=== PATIENT | male | born 1950 | race Caucasian/White ===

== ENCOUNTER 2017-08-14 10:04 | Emergency (ER) | payer MEDICARE ==
[2017-08-14 10:11] VITALS: BMI 30.5
[2017-08-14 10:15] VITALS: RESP 18
[2017-08-14] MEDS ORDERED: Sodium Chloride 0.9% 1,000 ML IV ONE (10:43)
[2017-08-14] MEDS ORDERED: Sodium Chloride 0.9% 1,000 ML ONE (10:52)
--- NOTE | 2017-08-14 10:54 | C.PDOC ---
History Of Present Illness 67 year old male, with PMHx of diabetes, HTN, presents to ED for evaluation of left sided back pain for two weeks. Notes that pain is worse at night when he lays on his left side or changes position. Notes he saw his [employer]ic 10 days ago, blood work was drawn but he does not know the results yet. Also notes Dr Cruz ordered MRI which pt has not completed yet. Denies dysuria, hematuria , frequency, abdominal pain, n/v/d, or fever. Denies history of kidney stones in the past. Denies taking any pain meds. No change in sensation, urinary or bowel incontinence. Time Seen by Provider: 08/14/17 10:28 Chief Complaint (Nursing): Back Pain History Per: Patient History/Exam Limitations: no limitations Onset/Duration Of Symptoms: Days Current Symptoms Are (Timing): Still Present Quality Of Discomfort: "Pain" Previous Symptoms: Back Pain. denies: Prior Injury Associated Symptoms: None. denies: Incontinence, New Weakness, New Numbness Recent travel outside of the [place]: No Additional History Per: Patient Past Medical History Reviewed: Historical Data, Nursing Documentation, Vital Signs Vital Signs: Last Vital Signs Temp 98 F 08/14/17 13:45 Pulse 56 L 08/14/17 13:45 Resp 18 08/14/17 13:45 BP 151/77 H 08/14/17 13:45 Pulse Ox 99 08/14/17 13:45 - Medical History PMH: Diabetes, HTN Family History: States: No Known Family Hx - Social History Hx Tobacco Use: No Hx Alcohol Use: No Hx Substance Use: No - Immunization History Hx Tetanus Toxoid Vaccination: No Hx Influenza Vaccination: Yes Hx Pneumococcal Vaccination: No Review Of Systems Except As Marked, All Systems Reviewed And Found Negative. Constitutional: Negative for: Fever, Chills Gastrointestinal: Negative for: Nausea, Vomiting, Abdominal Pain, Diarrhea, Constipation Genitourinary: Negative for: Dysuria, Frequency, Hematuria, Penile Discharge Musculoskeletal: Positive for: Back Pain (left flank) Neurological: Negative for: Weakness, Numbness Physical Exam - Physical Exam Appears: Non-toxic, No Acute Distress Skin: Normal Color, Warm, Dry Head: Atraumatic, Normacephalic Eye(s): bilateral: Normal Inspection, EOMI Nose: Normal Oral Mucosa: Moist Neck: Normal ROM, Supple Chest: Symmetrical Cardiovascular: Rhythm Regular Respiratory: Normal Breath Sounds, No Rales, No Rhonchi, No Wheezing Gastrointestinal/Abdominal: Soft, No Tenderness Back: No CVA Tenderness, No Vertebral Tenderness, Paraspinal Tenderness (left paralumbar), Other (non-tender, non-erythematous, non-flctuant, mobile mass to left flank region) Extremity: Normal ROM, No Pedal Edema Neurological/Psych: Oriented x3, Normal Speech, Normal Motor, Normal Sensation ED Course And Treatment - Laboratory Results Result Diagrams: 08/14/17 11:13 08/14/17 11:13 O2 Sat by Pulse Oximetry: 100 (RA) Pulse Ox Interpretation: Normal - CT Scan/US Abd pelvis Other Rad Studies (CT/US): Read By Radiologist, Radiology Report Reviewed CT/US Interpretation: PROCEDURE: CT Abdomen and Pelvis without Oral or IV contrast. HISTORY: pain. COMPARISON: None available. TECHNIQUE: Contiguous axial images of the abdomen and pelvis. No oral or IV contrast administered. Coronal and Sagittal reformats generated and reviewed. Radiation dose: Total exam DLP = 997.23 mGy-cm. This CT exam was performed using one or more of the following dose reduction techniques: Automated exposure control, adjustment of the mA and/or kV according to patient size, and/or use of iterative reconstruction technique. FINDINGS: There is limited evaluation of the solid organs without the administration of IV contrast. LOWER THORAX: No visible consolidation, pleural effusion, or pneumothorax. Aortic valve calcification. LIVER: Unremarkable. GALLBLADDER AND BILE DUCTS: Unremarkable. PANCREAS: Unremarkable. SPLEEN: Unremarkable. ADRENALS: Unremarkable. KIDNEYS AND URETERS: No hydronephrosis or obstructing renal calculus. Numerous bilateral low-density lesions throughout both kidneys, likely cysts. Largest lesion resides within the left upper pole kidney measuring approximately 7 cm more complicated appearing cystic lesion with peripheral calcification resides within the lateral left mid pole measuring approximately 2.9 cm. BLADDER: The urinary bladder appears unremarkable. REPRODUCTIVE: The prostate gland measures approximately 4.5 x 5.1 cm and contains calcifications. APPENDIX: The appendix appears within normal limits of caliber. No secondary signs of acute appendicitis. BOWEL: The stomach is nondistended. Lack of oral contrast limits evaluation for bowel pathology. The bowel loops appear within normal limits of caliber without evidence of intestinal obstruction. Diverticulosis most extensive at the distal left/ rectosigmoid colon. PERITONEUM: No significant free fluid. No definite free air. LYMPH NODES: No bulky lymphadenopathy identified. VASCULATURE: Atherosclerotic calcifications. No aortic aneurysm. BONES: Multilevel degenerative changes of the spine. OTHER FINDINGS: 1.6 cm fat containing umbilical hernia. IMPRESSION: Diverticulosis most extensive at the distal left /rectosigmoid colon. No CT evidence of acute diverticulitis. Numerous bilateral low-density lesions throughout both kidneys, likely cysts. Largest lesion resides within the left upper pole kidney measuring approximately 7 cm more complicated appearing cystic lesion with peripheral calcification resides within the lateral left mid pole measuring approximately 2.9 cm. Follow-up ultrasound may be considered for further evaluation if indicated. 1.6 cm fat containing umbilical hernia. Enlarged prostate gland. Recommend correlation with PSA. Additional incidental findings as above. Progress Note: Blood work, UA ordered and reviewed. Pt was given Toradol and IV fluids. On re-eval, pt reports feeling better, with improvement of pain. Patient is resting comfortably, no fever, no bony tenderness, no numbness, no weakness, or abdominal pain. Patient is ambulatory in the emergency department with no signs of discomfort. Patient was advised to follow up with their physician in 1-2 days. I discussed with Ct results with pt: pt notes he has a h /o of kidney cyst for 15+ years and recently had US for it. Pt also notes he has a h/o enlarged prostate, though his PSA went from 8 to 2 therefore has not follow up since. PT notes he has no known h/o diverticulosis or diverticulitis. Last colonoscopy "many years ago" and he was instructed by Dr Silverio to get colonscopy TORRES. Pt was given all the labs and CT results and instructed strict follow up with speciailist/PMD . Disposition - Disposition Disposition: HOME/ ROUTINE Disposition Time: 13:03 Condition: STABLE Additional Instructions: Follow up with your PMD, case finisher, GI specialist , and neurologist as soon as possible. Show them the results for further evaluation. Return to ER if symptoms persist or worsen. Instructions: Diverticulosis Diet (ED), Back Pain (ED) Forms: [facility] ([place]) - Clinical Impression Clinical Impression: Renal cyst, Back pain - PA / PRESS OFFICER / Resident Statement MD/DO has reviewed & agrees with the documentation as recorded. - Scribe Statement The provider has reviewed the documentation as recorded by the Andre Hogan All medical record entries made by the Scribe were at my direction and personally dictated by me. I have reviewed the chart and agree that the record accurately reflects my personal performance of the history, physical exam, medical decision making, and the department course for this patient. I have also personally directed, reviewed, and agree with the discharge instructions and disposition.
[2017-08-14 11:18] LABS: BASO % 0.6 % (0.0-2.0); EOS # 0.9 K/uL (0.0-0.7); EOS % 11.1 % (0.0-4.0); HEMATOCRIT 39.1 % (35.0-51.0); LYMPH # 1.6 K/uL (1.0-4.3); LYMPH % 20.2 % (20.0-40.0); MEAN CELL VOLUME 80.9 fL (80.0-94.0); MEAN CORPUSCULAR HEMOGLOBIN 27.4 pg (27.0-31.0); MEAN CORPUSCULAR HGB CONC 33.9 g/dL (33.0-37.0); MEAN PLATELET VOLUME 8.7 fL (7.2-11.7); MONO # 0.5 K/uL (0.0-0.8); MONO % 6.4 % (0.0-10.0); NRBC % 0.1 % (0.0-2.0); RED CELL DISTRIBUTION WIDTH 13.7 % (11.5-14.5); WHITE BLOOD COUNT 7.9 K/uL (4.8-10.8)
[2017-08-14 11:20] LABS: URINE BACTERIA RARE (<OCC); URINE BILIRUBIN NEGATIVE (NEGATIVE); URINE BLOOD NEGATIVE (NEGATIVE); URINE COLOR Straw (YELLOW); URINE GLUCOSE (UA) NORMAL (Normal); URINE KETONE NEGATIVE (NEGATIVE); URINE LEUKOCYTE ESTERASE NEG Leu/uL (Negative); URINE PROTEIN NEGATIVE (NEGATIVE); URINE UROBILINOGEN NORMAL mg/dL (0.2-1.0); WBC URINE < 1 /hpf (0-5)
[2017-08-14 11:40] LABS: ALB/GLOB RATIO 1.3 (1.0-2.1); ALKALINE PHOSPHATASE 33 U/L (38-126); ALT/SGPT 25 U/L (21-72); AST/SGOT 27 U/L (17-59); BILIRUBIN,TOTAL 0.6 mg/dL (0.2-1.3); BLOOD UREA NITROGEN 17 mg/dL (9-20); CALCIUM 8.1 mg/dl (8.6-10.4); CARBON DIOXIDE 20 mmol/L (22-30); CHLORIDE 103 mmol/L (98-107); GFR AFRICAN-AMERICAN > 60; GLUCOSE,RANDOM 192 mg/dL (75-110); POTASSIUM 4.4 mmol/L (3.6-5.2); SODIUM 131 mmol/L (132-148); TOTAL PROTEIN 6.9 g/dL (6.3-8.3)
--- NOTE | 2017-08-14 12:06 | CT ---
PROCEDURE: CT Abdomen and Pelvis without Oral or IV contrast. HISTORY: pain COMPARISON: None available TECHNIQUE: Contiguous axial images of the abdomen and pelvis. No oral or IV contrast administered. Coronal and Sagittal reformats generated and reviewed. Radiation dose: Total exam DLP = 997.23 mGy-cm. This CT exam was performed using one or more of the following dose reduction techniques: Automated exposure control, adjustment of the mA and/or kV according to patient size, and/or use of iterative reconstruction technique. FINDINGS: There is limited evaluation of the solid organs without the administration of IV contrast. LOWER THORAX: No visible consolidation, pleural effusion, or pneumothorax. Aortic valve calcification. LIVER: Unremarkable. GALLBLADDER AND BILE DUCTS: Unremarkable. PANCREAS: Unremarkable. SPLEEN: Unremarkable. ADRENALS: Unremarkable. KIDNEYS AND URETERS: No hydronephrosis or obstructing renal calculus. Numerous bilateral low-density lesions throughout both kidneys, likely cysts. Largest lesion resides within the left upper pole kidney measuring approximately 7 cm more complicated appearing cystic lesion with peripheral calcification resides within the lateral left mid pole measuring approximately 2.9 cm. BLADDER: The urinary bladder appears unremarkable. REPRODUCTIVE: The prostate gland measures approximately 4.5 x 5.1 cm and contains calcifications. APPENDIX: The appendix appears within normal limits of caliber. No secondary signs of acute appendicitis. BOWEL: The stomach is nondistended. Lack of oral contrast limits evaluation for bowel pathology. The bowel loops appear within normal limits of caliber without evidence of intestinal obstruction. Diverticulosis most extensive at the distal left/rectosigmoid colon. PERITONEUM: No significant free fluid. No definite free air. LYMPH NODES: No bulky lymphadenopathy identified. VASCULATURE: Atherosclerotic calcifications. No aortic aneurysm. BONES: Multilevel degenerative changes of the spine. OTHER FINDINGS: 1.6 cm fat containing umbilical hernia. IMPRESSION: Diverticulosis most extensive at the distal left/rectosigmoid colon. No CT evidence of acute diverticulitis. Numerous bilateral low-density lesions throughout both kidneys, likely cysts. Largest lesion resides within the left upper pole kidney measuring approximately 7 cm more complicated appearing cystic lesion with peripheral calcification resides within the lateral left mid pole measuring approximately 2.9 cm. Follow-up ultrasound may be considered for further evaluation if indicated. 1.6 cm fat containing umbilical hernia. Enlarged prostate gland. Recommend correlation with PSA. Additional incidental findings as above.
[2017-08-14 13:46] VITALS: BP 151/77; PULSE 56; TEMP 98
[2017-08-14 13:52] VITALS: O2SAT 100
== END 2017-08-14 13:46 | disposition home or self-care (01) ==
LOC: C.ER 10:04
DX: N28.1 Cyst of kidney, acquired (principal); M54.9 Dorsalgia, unspecified; E11.9 Type 2 diabetes mellitus without complications; I10 Essential (primary) hypertension
CPT/HCPCS: 74176; 80053; 81001; 85025; 96361; 96374; 99284; J1885; J7040

== ENCOUNTER 2018-06-14 08:16 | Day surgery (SDC) | payer MEDICARE ==
[2018-06-12 11:47] VITALS: BMI 31.3
[2018-06-14] MEDS ORDERED: Lidocaine 4% (Laryng-O-Jet) Kit MM ONE (09:51)
[2018-06-14] MEDS ORDERED: Propofol 10 mg/ml Inj (20 ML) ONE (10:04)
--- NOTE | 2018-06-14 20:24 | CARD ---
APPROVED REPORT Date of service: 06/14/2018 EXAM: Transesophageal echocardiogram with color flow Doppler. INDICATION ICD: I35.0 Aortic Valve Disease 2D DIMENSIONS LVOT Diameter2.1 (1.8-2.4cm) Aortic Valve AoV Peak Inilfxwv710.6cm/sAoV VTI90.9cmAO Peak GR.56mmHg LVOT Peak Tjogwtop588.6cm/sLVOT VTI28.80cmAO Mean GR.32mmHg RAMON (VMAX)1.01vg7DMA (VTI)1.13cm2 Mitral Valve E/A ratio0.0 TDI E/Lateral E'0.0E/Medial E'0.0 Reason For Test : To evaluate Aortic valve PROCEDURE After obtaining informed consent, patient underwent transesophageal echo in the [employer]. Type of Sedation : Conscious Sedation Sedation was provided by anesthesiologist. Sedation was achieved with intravenously. The YUE was performed complications. Throughout the procedure, the blood pressure, pulse oximetry, cardiac rhythm, and rate were monitored. The patient tolerated the procedure without adverse effects. Recovery from conscious sedation was uneventful and vital signs were stable. LEFT VENTRICLE The left ventricle is normal size. There is moderate concentric left ventricular hypertrophy. Left ventricle systolic function is normal. The Ejection Fraction is >70%. There is normal LV segmental wall motion. Tissue Doppler imaging reveals abnormal left ventricular diastolic dysfunction. No left ventricle thrombus noted on this study. There is no ventricular septal defect visualized. There is no left ventricular aneurysm. RIGHT VENTRICLE The right ventricle is normal size. The right ventricular systolic function is normal. ATRIA The left atrium is mildly dilated. The right atrium size is normal. The interatrial septum is intact with no evidence for an atrial septal defect. AORTIC VALVE The aortic valve is moderately calcified. The aortic valve is probably bicuspid. Right and Left Coronary cusps are fused There is mild to moderate aortic regurgitation. There is severe valvular aortic stenosis. Calculated aortic valve area is 0.9 cm2 with maximum pressure gradient of 61 mmHg and mean pressure gradient of 33 mmHg. There is no aortic valvular vegetation. MITRAL VALVE The mitral valve is normal in structure. There is no evidence of mitral valve prolapse. There is no mitral valve stenosis. Mitral regurgitation is mild. TRICUSPID VALVE The tricuspid valve is normal in structure. There is mild tricuspid regurgitation. There is no tricuspid valve prolapse or vegetation. There is no tricuspid valve stenosis. PULMONIC VALVE The pulmonary valve is normal in structure. GREAT VESSELS The aortic sinuses are normal There is mild to moderate aortic root dilatation (4.2 cm largest diameter) <Conclusion> Left ventricle systolic function is normal. The Ejection Fraction is >70%. The right ventricle is normal size. The left atrium is mildly dilated. The right atrium size is normal. Mitral regurgitation is mild. There is mild tricuspid regurgitation. There is mild to moderate aortic root dilatation (4.2 cm largest diameter) The aortic valve is moderately calcified. The aortic valve is probably bicuspid. Right and Left Coronary cusps are fused There is mild to moderate aortic regurgitation. There is severe valvular aortic stenosis. Calculated aortic valve area is 0.9 cm2 with maximum pressure gradient of 61 mmHg and mean pressure gradient of 33 mmHg.
== END 2018-06-14 11:40 | disposition home or self-care (01) ==
LOC: C.CATHLAB 08:16
PROVIDERS: ATTEND Internal Medicine Cardiovascular Disease
DX: I35.0 Nonrheumatic aortic (valve) stenosis (principal); I34.0 Nonrheumatic mitral (valve) insufficiency; I07.1 Rheumatic tricuspid insufficiency
CPT/HCPCS: 93312; J2704

== ENCOUNTER 2018-07-05 07:46 | Day surgery (SDC) | payer MEDICARE ==
[2018-06-12 11:47] VITALS: BMI 31.3
[2018-07-05] MEDS ORDERED: Midazolam 2 MG/2 ML VIAL ONE (11:35)
[2018-07-05] MEDS ORDERED: Iodixanol 320 MG/ML 100 ML BOTTLE IV ONE ×3 (11:36→11:52)
[2018-07-05] MEDS ORDERED: ceFAZolin 1 gm FROZEN Premix 1 GM/50 ML ML IVPB ONE (12:04)
[2018-07-05 14:20] LABS: ARTERIAL BLOOD GAS HCO3 24.1 mmol/L (21-28); ARTERIAL BLOOD GAS PCO2 38 mm/Hg (35-45); ARTERIAL BLOOD GAS PO2 100 mm/Hg (80-100)
[2018-07-05 14:21] LABS: ARTERIAL BLOOD GAS O2 SAT 99.2 % (95-98); ARTERIAL BLOOD GAS TCO2 24.7 mmol/L (22-28)
[2018-07-05 14:22] LABS: VENOUS BLOOD GAS PCO2 47 mmHg (40-60); VENOUS BLOOD PH 7.35 (7.32-7.43)
[2018-07-05 14:23] LABS: VENOUS BLOOD GAS BASE EXCESS -0.2 mmol/L (0.0-2.0); VENOUS BLOOD GAS PO2 43 mm/Hg (30-55)
--- NOTE | 2018-07-08 01:50 | CARDCATH ---
PROCEDURE DATE: 07/05/2018 PROCEDURES: 1. Coronary angiogram. 2. Aortic root angiogram. 3. Right heart catheterization. CLINICAL INDICATIONS: 1. Exertional dyspnea. 2. Severe symptomatic aortic stenosis. 3. Hypertension. 4. Hyperlipidemia. REFERRING PHYSICIAN: Stella Ritter MD PERFORMING PHYSICIAN: Osmar Gerber MD DESCRIPTION OF PROCEDURE: After informed consent, the patient was prepped and draped in the usual sterile fashion. A 2% lidocaine was given in the right wrist and right antecubital area. A 6-Djiboutian sheath was introduced into right radial artery. A 7-[place]ib[place]ian sheath introduced into right antecubital vein. Through the 7-Djiboutian antecubital vein, right heart [place]-Fatoumata catheter was inserted into pulmonary artery. Right heart catheterization was performed by taking the measurements in the pulmonary artery, right ventricle, right atrium. Saturations are obtained. Both arterial and venous access were obtained. Cardiac output was calculated using Sven method. A 6-[place]ib[place]ian JR4 diagnostic catheter was engaged into right coronary artery. Contrast injected, and right coronary angiogram was done. Then, the catheter was exchanged to 6-D[place]ib[place]ian Edil catheter. The catheter was engaged into left main coronary. Contrast injected, and left coronary angiogram was done. The patient tolerated the procedure well. Postprocedure, Terumo radial band was applied to right wrist with excellent hemostasis. A 7-D[place]iboutian sheath from the antecubital fossa was removed, and pressure was applied manually. Radiological supervision and radiological interpretation of the coronary imaging was done. FINDINGS: 1. Left main coronary artery is patent. 2. Mid LAD has a 40% nonobstructive stenosis. Distal LAD and diagonal branches are patent. 3. Left circumflex and obtuse marginal branches are patent. 4. Right coronary artery is dominant and patent. 5. The patient has a moderate pulmonary hypertension. 6. Cardiac output by Sven method is 6 L per minute. Cardiac index is 3 L per minute per meter square of the body surface area. IMPRESSION: 1. Nonobstructive coronaries. 2. Moderate pulmonary hypertension. 3. Severe aortic stenosis by echocardiogram. Osmar Gerber MD [facility] # [id number]
== END 2018-07-05 16:00 | disposition home or self-care (01) ==
LOC: C.CATHLAB 07:46
PROVIDERS: ATTEND Internal Medicine Cardiovascular Disease
DX: I35.0 Nonrheumatic aortic (valve) stenosis (principal); R07.2 Precordial pain; I10 Essential (primary) hypertension; E78.5 Hyperlipidemia, unspecified
CPT/HCPCS: 82803; 82948; J0690; J1644; J2250; J3010; Q9967